=== PATIENT | female | born 1950 | race Caucasian/White ===

== ENCOUNTER → 2020-04-19 10:20 | Outpatient (CLI) | payer MEDICARE, SELFPAY ==
--- NOTE | ~2020-04-19 | XR_ITS ---
EXAMINATION: XR chest 2V 04/19/2020 10:35 INDICATION: Hypertensive heart disease with heart failure PROCEDURE: 2 view chest COMPARISON: No prior studies for comparison. FINDINGS: The lungs are clear. The cardiomediastinal silhouette is within normal limits. There are no pleural effusions. There is no pneumothorax suspected. Calcified granuloma left apex. There is s coliosis. IMPRESSION: 1: NO ACUTE CARDIOPULMONARY DISEASE. Reviewed, dictated and finalized at location A.
== END ==
PROVIDERS: PCP Internal Medicine; Visit Provider Internal Medicine
DX: I11.0 Hypertensive heart disease with heart failure (principal)
CPT/HCPCS: 71046

== ENCOUNTER 2020-05-04 13:12 | Outpatient (CLI) | payer MEDICARE, SELFPAY ==
--- NOTE | 2020-05-04 13:47 | ECHO_ITS ---
Patient Info Name: Barbara Gilman Age: 69 years : 1950 Gender: Female Ht: 60 in Wt: 116 lbs BSA: 1.50 m2 HR: 82 bpm BP: 144 / 82 mmHg Technical Quality: Good Exam Date: 05/04/2020 1:54 PM Exam Location: [facility] Patient Status: Outpatient Admit Date: 05/04/2020 Staff Ordering Physician: Rahul Martin MD Kettle Operator Head: Cintia Vicente RDCS Attending Provider: Rahul Martin MD Referring Physician: Veronica PRICE; Exam Type: CA echo doppler color flow Study Info Indications - HYPERTENSIVE HEART DISEASE CHF Complete two-dimensional, color flow and Doppler transthoracic echocardiogram is performed. Summary 1. Complete two-dimensional, color flow and Doppler transthoracic echocardiogram is performed. 2. Left ventricular chamber dimension is normal. 3. Ventricular septum is sigmoid shaped. No LVOT obstruction. 4. Left ventricular systolic function is normal, estimated at 60-65%. 5. The left ventricular diastolic function is grade I diastolic dysfunction. 6. E/e' 11 is mildly elevated. 7. Global longitudinal strain is normal at -19.8%. 8. Left atrial chamber dimension is moderately enlarged. 9. There is mild aortic valve sclerosis. 10. Mild systolic anterior motion of mitral valve. 11. There is trace mitral valve regurgitation. 12. There is trace tricuspid valve regurgitation. 13. No pulmonary hypertension, estimated pulmonary arterial systolic pressure is 28 mmHg. Left Ventricle E/e' 11 is mildly elevated. Global longitudinal strain is normal at -19.8%. Ventricular septum is sigmoid shaped. No LVOT obstruction. Left ventricular chamber dimension is normal. Left ventricular systolic function is normal, estimated at 60-65%. The left ventricular diastolic function is grade I diastolic dysfunction. Right Ventricle Right ventricular chamber dimension is normal. Right ventricular systolic function is normal. Left Atria Left atrial chamber dimension is moderately enlarged. Right Atria Right atrial chamber dimension is normal. Aortic Valve The aortic valve is trileaflet. There is mild aortic valve sclerosis. There is no aortic valve stenosis. There is no aortic valve regurgitation. Pulmonic Valve There is no pulmonic regurgitation. Mitral Valve Mild systolic anterior motion of mitral valve. There is no mitral valve stenosis. There is trace mitral valve regurgitation. Tricuspid Valve There is trace tricuspid valve regurgitation. No pulmonary hypertension, estimated pulmonary arterial systolic pressure is 28 mmHg. Pericardium/Pleural There is no pericardial effusion. Inferior Vena Cava Normal inferior vena cava with >50% collapse upon inspiration consistent with normal right atrial pressure, 5 mmHg. Aorta The aortic root size at the sinus of Valsalva is normal. Left Ventricular Outflow Tract Name Value Normal LVOT 2D LVOT Diameter 2.0 cm LVOT Doppler LVOT Peak Gradient 5 mmHg LVOT Mean Gradient 3 mmHg LVOT VTI 22 cm LVOT VTI/AV VTI Ratio
== END 2020-05-04 13:13 | disposition home or self-care (01) ==
PROVIDERS: PCP Internal Medicine; Visit Provider Internal Medicine
DX: R60.0 Localized edema (principal); I11.0 Hypertensive heart disease with heart failure; I35.8 Other nonrheumatic aortic valve disorders
CPT/HCPCS: 93306

== ENCOUNTER 2020-06-08 09:55 | Outpatient (CLI) | payer MEDICARE, SELFPAY ==
[2020-06-08 11:00] LABS: Anion Gap 6 mmol/L (8-16); Blood Urea Nitrogen 15 mg/dL (7-17); Calcium 8.8 mg/dL (8.4-10.2); Carbon Dioxide 34 mmol/L (22-30); Chloride 95 mmol/L (98-107); Estimated Glomerular Filt Rate > 60; Glucose 131 mg/dL (65-105); Potassium 3.8 mmol/L (3.4-5.0); Sodium 135 mmol/L (137-145)
[2020-06-08 11:07] LABS: NT Pro B Type Natriuretic Pept 766 PG/ML (5-100)
== END 2020-06-08 09:56 | disposition home or self-care (01) ==
LOC: ANHLAB 09:57
PROVIDERS: PCP Internal Medicine; Visit Provider Internal Medicine
DX: I11.0 Hypertensive heart disease with heart failure (principal)
CPT/HCPCS: 36415; 80048; 83880

== ENCOUNTER 2021-09-27 00:20 | Day surgery (SDC) | payer MEDICARE, SELFPAY ==
[2021-09-22 13:41] VITALS: BMI 22.8
[2021-09-27 08:33] VITALS: BP 139/58; PULSE 94; RESP 16; TEMP 36.3; O2SAT 100; BMI 21.2
[2021-09-27] MEDS: LACTATED RINGERS 1,000 ML 150 ML IV CONT (08:53)
[2021-09-27 08:54] LABS: Glucose Point of Care 115 mg/dl (65-105)
--- NOTE | 2021-09-27 09:20 | WPDANESEPPF ---
Anes - Initial Pre Proc Eval Procedure: Operation Date: 09/27/21 10:00 Proposed Procedures p Colonoscopy - Archie Haney MD Date/Time: 09/27/21 09:20 Surgeon: Archie Haney MD Pre Op Diagnosis: ROHITH Patient Data Age: 71 Gender: F Height: 1.52 m Weight: 49.4 kg Last Vital Signs Temp 97.3 F L 09/27/21 08:33 Pulse 94 09/27/21 08:33 Resp 16 09/27/21 08:33 BP 139/58 L 09/27/21 08:33 Pulse Ox 100 09/27/21 08:33 Allergies Allergy/AdvReac Type Severity Reaction Status Date / Time No Known Allergies Allergy Verified 09/27/21 08:41 Home Medications Medication Instructions Recorded Confirmed Type nebivolol 5 mg tablet 5 mg PO DAILY #90 tablet 08/22/21 09/27/21 Rx ferrous sulfate 325 mg (65 mg 325 mg PO DAILY 09/04/21 09/27/21 History iron) tablet pen needle, diabetic 32 gauge x #100 each 09/04/21 09/27/21 Rx 3/16 levothyroxine 50 mcg tablet 50 mcg PO DAILY #90 tablet 09/19/21 09/27/21 Rx cholecalciferol (vitamin D3) 1,250 mcg PO WEEKLY 09/22/21 09/27/21 History citalopram 10 mg PO DAILY 09/22/21 09/27/21 History empagliflozin-metformin [Synjardy 1 tablet PO DAILY 09/22/21 09/27/21 History XR] insulin degludec [Tresiba 10 unit SUBCUT DAILY 09/22/21 09/27/21 History FlexTouch U-100] perindopril erbumine 4 mg PO DAILY 09/22/21 09/27/21 History potassium chloride 10 meq PO DAILY 09/22/21 09/27/21 History rosuvastatin 10 mg PO DAILY 09/22/21 09/27/21 History glimepiride 1 mg tablet 1 mg PO QAM 09/27/21 09/27/21 History Laboratory Tests 09/27/21 08:51 POC Capillary Glucose 115 mg/dl H mg/dl (65-105) Patient hx anesthesia problems: none Family hx anesthesia problems: none Results Review: All pre-operative results and documents have been reviewed as part of the pre-operative evaluation. [facility] Past Medical History Medical History (Updated 09/21/21 @ 10:04 by Archie Haney MD) Choledocholithiasis Elevated alkaline phosphatase level Eye exam normal Hypertensive heart disease with CHF Surgical History Surgical History H/O eye surgery Family History Family History Father Family history of Alzheimer's disease Sibling Family history of diabetes mellitus in first degree relative Grandparent Diabetes mellitus Social History Social History Smoking status: Never smoker Second hand tobacco smoke exposure: No Alcohol intake: never Substance use: never Substance use type: does not use Living arrangements: with family Gender identity (if verbalized by the patient): Female Spiritual care concerns: No Agree to blood products: Yes Anes - Eval Final PreProcedure Day of Procedure 09/27/21 09:20 Patient weight: normal Heart: regular rate and rhythm Lungs: clear to auscultation Airway: Mallampati scale class II Neurological: alert and oriented Last oral intake: >/= 8 hours ASA classification: III Emergent: no Anesthetic plan: proceed Anesthesia type and monitoring: general GIVS and standard monitoring Results Review: All pre-operative results and documents have been reviewed as part of the pre-operative evaluation. Informed Consent: The patient's anesthetic plan and its attendant risks and benefits were discussed with the patient/family/POA. Questions were solicited and answers provided to the satisfaction of the patient/family/POA.
--- NOTE | 2021-09-27 09:56 | WPDHPUPDATE1 ---
History and Physical Update Update Date/Time: 09/27/21 09:56 History and Physical has been reviewed, including an updated exam of the patient. There are NO changes in the patient's condition. Risks, benefits, and alternatives have been discussed and questions answered. Patient agrees to proceed with procedure.
[2021-09-27 10:30] VITALS: BP 107/58; PULSE 78; RESP 19; O2SAT 98
[2021-09-27 10:40] VITALS: BP 114/69; PULSE 81; RESP 16; O2SAT 100
[2021-09-27 10:49] LABS: Glucose Point of Care 107 mg/dl (65-105)
[2021-09-27 10:50] VITALS: BP 111/68; PULSE 79; RESP 16; O2SAT 100
== END 2021-09-27 11:01 | disposition home or self-care (01) ==
PROVIDERS: PCP Family Medicine; Visit Provider Internal Medicine Gastroenterology
PROC: 0DJD8ZZ Inspection of Lower Intestinal Tract, Via Natural or Artificial Opening Endoscopic (ICD-10-PCS; CPT 45378; principal; 2021-09-27 10:00)
DX: K57.30 Diverticulosis of large intestine without perforation or abscess without bleeding (principal); D12.3 Benign neoplasm of transverse colon; D12.2 Benign neoplasm of ascending colon; D12.0 Benign neoplasm of cecum; D12.7 Benign neoplasm of rectosigmoid junction; K63.5 Polyp of colon; K64.8 Other hemorrhoids; K64.4 Residual hemorrhoidal skin tags; I11.0 Hypertensive heart disease with heart failure; I50.9 Heart failure, unspecified; E11.319 Type 2 diabetes mellitus with unspecified diabetic retinopathy without macular edema; K80.50 Calculus of bile duct without cholangitis or cholecystitis without obstruction; R74.8 Abnormal levels of other serum enzymes; E11.65 Type 2 diabetes mellitus with hyperglycemia; Z79.84 Long term (current) use of oral hypoglycemic drugs; Z79.4 Long term (current) use of insulin
CPT/HCPCS: 45380; 45385; 82948; 88305; J2704; J7120

== ENCOUNTER 2021-10-06 01:05 | Day surgery (SDC) | payer MEDICARE, SELFPAY ==
[2021-10-02 13:28] VITALS: BMI 22.8
[2021-10-02 13:45] VITALS: BMI 22.8
--- NOTE | 2021-10-02 13:50 | PC.NURSE ---
Pts. labs reviewed by Dr. Medina and Dr. Gutiérrez. Will order EKG to be done in pre-op on am of procedure. No other orders received.
[2021-10-06] VITALS (8 sets, daily range): BP systolic 116–154; BP diastolic 65–80; PULSE 66–88; RESP 16–24; TEMP 36.6–36.9; O2SAT 99–100; BMI 24.5
--- NOTE | ~2021-10-06 | XR_ITS ---
EXAMINATION: XR ERCP DATE: 10/06/2021 15:19 INDICATION: Biliary stones TECHNIQUE: Two intraoperative fluoroscopic images obtained during endoscopic retrograde cholangiopanc reatography (ERCP) are submitted for review. Total fluoroscopic time was 194.8 seconds. COMPARISON: None. FINDINGS: Fluoroscopic images demonstrate cannulation of the common bile duct stent placement. IMPRESSION: 1. Biliary stent placement. Please refer to the ERCP procedure note for additional details. Reviewed, dictated and finalized at location B. L TIER IMPRESSION: 1. Biliary stent placement. Please refer to the ERCP procedure note for additio nal details.
--- NOTE | 2021-10-06 12:40 | ECG_ITS ---
Measurements Intervals [place] Rate: 75 P: 33 KS: 144 QRS: -20 QRSD: 98 T: 20 QT: 412 QTc: 460 Interpretive Statements SINUS RHYTHM WITHIN NORMAL LIMITS NO PREVIOUS ECG AVAILABLE FOR COMPARISON Electronically Signed On 10-09-2021 14:09:07 CDT by Abdon La M.D.
[2021-10-06 13:04] LABS: Glucose Point of Care 148 mg/dl (65-105)
[2021-10-06] MEDS: LACTATED RINGERS 1,000 ML 150 ML IV CONT (13:11)
--- NOTE | 2021-10-06 13:21 | PM.HPGS ---
History of Present Illness History of Present Illness Consent: Risks, benefits, and alternatives have been discussed and questions answered. Patient agrees to proceed with procedure. Chief complaint: CBD Gallstone Narrative: Barbara Gilman is a 71 year old female here for ercp, she was found to have odilon and also large stone in bile duct with elevated Alk phos. Review of Systems Constitutional: Constitutional: Denies headache(s) and Denies weakness Eyes: Eyes: Denies blurry vision ENT: Reports Normal hearing present, Denies headache(s) and Denies neck pain Cardiovascular: Cardiovascular: Denies chest pain and Denies dyspnea Respiratory: Respiratory: Denies dyspnea Gastrointestinal: Gastrointestinal: Reports no additional gastrointestinal complaints Genitourinary: Genitourinary: Denies dysuria Musculoskeletal: Musculoskeletal: Denies neck pain Integumentary/Breasts: Skin/Breast: Denies dry skin Neurologic: Reports Normal hearing present, Denies headache(s) and Denies weakness Psychiatric: Psychiatric: Denies anxiety Endocrine: Endocrine: Denies change in body appearance Hematologic/Lymphatic: Hematologic/Lymphatic: Denies easy bleeding Allergic/Immunologic: Allergic/Immunologic: Denies urticaria PMFSH Past Medical History Medical History Choledocholithiasis Elevated alkaline phosphatase level Eye exam normal Hypertensive heart disease with CHF Surgical History Surgical History H/O eye surgery Family History Family History Father Family history of Alzheimer's disease Sibling Family history of diabetes mellitus in first degree relative Grandparent Diabetes mellitus Social History Social History Smoking status: Never smoker Second hand tobacco smoke exposure: No Alcohol intake: never Substance use: never Substance use type: does not use Living arrangements: with family Gender identity (if verbalized by the patient): Female Spiritual care concerns: No Agree to blood products: Yes Meds Home Medications and Allergies Home Medications Medication Instructions Recorded Confirmed Type nebivolol 5 mg tablet 5 mg PO DAILY #90 tablet 08/22/21 09/29/21 Rx ferrous sulfate 325 mg (65 mg 325 mg PO DAILY 09/04/21 09/29/21 History iron) tablet pen needle, diabetic 32 gauge x #100 each 09/04/21 09/29/21 Rx /16 levothyroxine 50 mcg tablet 50 mcg PO DAILY #90 tablet 09/19/21 09/29/21 Rx cholecalciferol (vitamin D3) 1,250 mcg PO WEEKLY 09/22/21 09/29/21 History citalopram 10 mg PO DAILY 09/22/21 09/29/21 History empagliflozin-metformin [Synjardy 1 tablet PO DAILY 09/22/21 09/29/21 History XR] insulin degludec [Tresiba 10 unit SUBCUT DAILY 09/22/21 09/29/21 History FlexTouch U-100] perindopril erbumine 4 mg PO DAILY 09/22/21 09/29/21 History potassium chloride 10 meq PO DAILY 09/22/21 09/29/21 History rosuvastatin 10 mg PO DAILY 09/22/21 09/29/21 History glimepiride 1 mg tablet 1 mg PO QAM 09/27/21 09/29/21 History Allergies Allergy/AdvReac Type Severity Reaction Status Date / Time No Known Allergies Allergy Verified 10/06/21 12:52 Vital Signs Vital Signs - 24 hr 10/06/21 12:55 Temperature 98.5 F Pulse Rate 88 Respiratory Rate 18 Blood Pressure 154/65 H Pulse Oximetry 100 Exam Const: General: comfortable and no acute distress HENMT: General nose exam: Normal nares present Eyes: General: appearance normal, both eyes and all related structures Neck: Neck: no JVD Resp: Auscultation: clear to auscultation bilaterally Cardio: Rate: regular rate Rhythm: regular rhythm GI: Inspection: non-distended GI Palp: Yes Soft to palpation Skin: General skin exam: normal color Neuro: General: gait normal Speech: norm
--- NOTE | 2021-10-06 13:29 | WPDANESEPPF ---
Anes - Initial Pre Proc Eval Procedure: Operation Date: 10/06/21 14:15 Proposed Procedures p Endoscopic Retro Cholangiopancreatogram With Spyglass - Archie Haney MD Date/Time: 10/06/21 13:29 Surgeon: Archie Haney MD Pre Op Diagnosis: CBD Gallstone Patient Data Age: 71 Gender: F Height: 1.52 m Weight: 57.1 kg Last Vital Signs Temp 98.5 F 10/06/21 12:55 Pulse 88 10/06/21 12:55 Resp 18 10/06/21 12:55 BP 154/65 H 10/06/21 12:55 Pulse Ox 100 10/06/21 12:55 Allergies Allergy/AdvReac Type Severity Reaction Status Date / Time No Known Allergies Allergy Verified 10/06/21 12:52 Home Medications Medication Instructions Recorded Confirmed Type nebivolol 5 mg tablet 5 mg PO DAILY #90 tablet 08/22/21 09/29/21 Rx ferrous sulfate 325 mg (65 mg 325 mg PO DAILY 09/04/21 09/29/21 History iron) tablet pen needle, diabetic 32 gauge x #100 each 09/04/21 09/29/21 Rx /16 levothyroxine 50 mcg tablet 50 mcg PO DAILY #90 tablet 09/19/21 09/29/21 Rx cholecalciferol (vitamin D3) 1,250 mcg PO WEEKLY 09/22/21 09/29/21 History citalopram 10 mg PO DAILY 09/22/21 09/29/21 History empagliflozin-metformin [Synjardy 1 tablet PO DAILY 09/22/21 09/29/21 History XR] insulin degludec [Tresiba 10 unit SUBCUT DAILY 09/22/21 09/29/21 History FlexTouch U-100] perindopril erbumine 4 mg PO DAILY 09/22/21 09/29/21 History potassium chloride 10 meq PO DAILY 09/22/21 09/29/21 History rosuvastatin 10 mg PO DAILY 09/22/21 09/29/21 History glimepiride 1 mg tablet 1 mg PO QAM 09/27/21 09/29/21 History Laboratory Tests 10/06/21 13:01 POC Capillary Glucose 148 mg/dl H mg/dl (65-105) Patient hx anesthesia problems: none Family hx anesthesia problems: none Results Review: All pre-operative results and documents have been reviewed as part of the pre-operative evaluation. [facility] Past Medical History Medical History Choledocholithiasis Elevated alkaline phosphatase level Eye exam normal Hypertensive heart disease with CHF Surgical History Surgical History H/O eye surgery Family History Family History Father Family history of Alzheimer's disease Sibling Family history of diabetes mellitus in first degree relative Grandparent Diabetes mellitus Social History Social History Smoking status: Never smoker Second hand tobacco smoke exposure: No Alcohol intake: never Substance use: never Substance use type: does not use Living arrangements: with family Gender identity (if verbalized by the patient): Female Spiritual care concerns: No Agree to blood products: Yes Anes - Eval Final PreProcedure Day of Procedure 10/06/21 13:29 Patient weight: normal Heart: regular rate and rhythm Lungs: clear to auscultation Airway: Mallampati scale class II Neurological: alert and oriented Last oral intake: >/= 8 hours ASA classification: III Emergent: no Anesthetic plan: proceed Anesthesia type and monitoring: general ETT and standard monitoring Results Review: All pre-operative results and documents have been reviewed as part of the pre-operative evaluation. Informed Consent: The patient's anesthetic plan and its attendant risks and benefits were discussed with the patient/family/POA. Questions were solicited and answers provided to the satisfaction of the patient/family/POA.
[2021-10-06] MEDS: levoFLOXacin 500 MG/D5W 100 ML 500 MG/100 ML BAG 100 MG IVPB (14:39)
[2021-10-06 15:33] LABS: Glucose Point of Care 145 mg/dl (65-105)
== END 2021-10-06 16:29 | disposition home or self-care (01) ==
PROVIDERS: PCP Family Medicine; Visit Provider Internal Medicine Gastroenterology
PROC: (CPT 43260; principal; 2021-10-06 14:15)
DX: K80.50 Calculus of bile duct without cholangitis or cholecystitis without obstruction (principal); I11.0 Hypertensive heart disease with heart failure; I50.9 Heart failure, unspecified; D50.9 Iron deficiency anemia, unspecified
CPT/HCPCS: 43264; 43274; 43273; 43261; 74329; 82948; 88305; 93005; C1876; J0330; J1956; J2370; J2704; J7120

== ENCOUNTER 2021-10-30 09:13 | Outpatient (CLI) | payer MEDICARE, SELFPAY ==
[2021-10-30 10:00] LABS: Basophils Absolute Auto 0.1 K/mm3 (0.0-0.1); Basophils Percent Auto 1.3 % (0.2-1.2); Eosinophils Absolute Auto 0.1 K/mm3 (0-0.3); Eosinophils Percent Auto 1.6 % (0-4.4); Hematocrit 23.4 % (37.0-47.0); Immature Granulocyte Absolute 0.03 K/mm3 (0.00-0.031); Immature Granulocyte Percent A 0.5 % (0-0.5); Lymphocytes Absolute Auto 1.53 K/mm3 (0.9-3.2); Lymphocytes Percent Auto 24.2 % (18.3-44.2); Mean Corpuscular HGB Conc 28.2 g/dl (32-36); Mean Corpuscular Hemoglobin 23.7 pg (26-34); Mean Corpuscular Volume 84.2 fl (80-100); Mean Platelet Volume 10.3 fl (7.4-10.4); Monocytes Absolute Auto 0.5 K/mm3 (0.1-0.6); Monocytes Percent Auto 8.6 % (2.6-8.5); Neutrophils Percent Auto 63.8 % (45.5-73.1); Platelet Count Result 248 k/mm3 (150-375); Red Blood Count 2.78 M/mm3 (4.2-5.4); White Blood Count 6.3 K/mm3 (4.5-10.0)
[2021-10-30 10:01] LABS: Amylase 116 U/L (30-110); Lipase 216 U/L (23-300)
[2021-10-30 10:30] LABS: Hemoglobin 6.6 g/dL (12.0-15.0)
== END 2021-10-30 09:14 | disposition home or self-care (01) ==
LOC: ANHSURGERY 09:16
PROVIDERS: PCP Family Medicine; Visit Provider Surgery
DX: Z01.818 Encounter for other preprocedural examination (principal); K80.20 Calculus of gallbladder without cholecystitis without obstruction; K80.50 Calculus of bile duct without cholangitis or cholecystitis without obstruction
CPT/HCPCS: 36415; 82150; 83690; 85025; 86850; 86900; 86901

== ENCOUNTER 2021-11-08 07:19 | Outpatient (RCR) | payer MEDICARE, SELFPAY ==
[2021-11-08 07:49] LABS: Hematocrit 23.8 % (37.0-47.0)
[2021-11-08 07:55] LABS: Hemoglobin 6.7 g/dL (12.0-15.0)
[2021-11-08] MEDS: SODIUM CHLORIDE 0.9% IV 250 ML 30 ML IV CONT (09:28)
[2021-11-08] MEDS: diphenhydrAMINE HCl CAP 25 MG CAPSULE PO (09:29)
[2021-11-08] MEDS: ACETAMINOPHEN 325 MG TABLET 650 MG PO (09:29)
[2021-11-08 09:45] VITALS: BP 110/52; PULSE 71; RESP 16; TEMP 36.9; O2SAT 99
[2021-11-08 10:00] VITALS: BP 108/58; PULSE 66; RESP 16; TEMP 36.5; O2SAT 97
[2021-11-08 11:00] VITALS: BP 117/61; PULSE 65; RESP 16; TEMP 36.8; O2SAT 98
[2021-11-08 12:00] VITALS: BP 126/63; PULSE 68; RESP 16; TEMP 36.6; O2SAT 97
[2021-11-08 12:55] VITALS: BP 129/68; PULSE 66; RESP 16; TEMP 36.6; O2SAT 98
== END 2022-02-04 23:59 | disposition home or self-care (01) ==
LOC: ANHCPCTRAN 07:19
PROVIDERS: PCP Family Medicine; Visit Provider Family Medicine
DX: D50.9 Iron deficiency anemia, unspecified (principal)
CPT/HCPCS: 36415; 36430; 85014; 85018; 86850; 86900; 86901; 86920; P9038; A9270; J7040; J7050

== ENCOUNTER 2021-11-17 10:59 | Outpatient (CLI) | payer MEDICARE, SELFPAY ==
[2021-11-17 11:17] LABS: Basophils Absolute Auto 0.1 K/mm3 (0.0-0.1); Basophils Percent Auto 1.3 % (0.2-1.2); Eosinophils Absolute Auto 0.2 K/mm3 (0-0.3); Eosinophils Percent Auto 3.5 % (0-4.4); Hematocrit 33.1 % (37.0-47.0); Hemoglobin 9.5 g/dL (12.0-15.0); Immature Granulocyte Absolute 0.06 K/mm3 (0.00-0.031); Immature Platelet Fraction Pct 2.7 % (0.9-11.2); Lymphocytes Percent Auto 28.1 % (18.3-44.2); Mean Corpuscular HGB Conc 28.7 g/dl (32-36); Mean Corpuscular Hemoglobin 26.5 pg (26-34); Mean Corpuscular Volume 92.2 fl (80-100); Mean Platelet Volume 9.7 fl (7.4-10.4); Monocytes Absolute Auto 0.5 K/mm3 (0.1-0.6); Monocytes Percent Auto 7.6 % (2.6-8.5); Neutrophils Absolute Auto 3.5 K/mm3 (1.3-6.7); Neutrophils Percent Auto 58.5 % (45.5-73.1); Platelet Count Result 224 k/mm3 (150-375); Red Blood Count 3.59 M/mm3 (4.2-5.4); Red Cell Distribution Width 22.3 % (11.5-14.5); White Blood Count 6.1 K/mm3 (4.5-10.0)
[2021-11-17 11:18] LABS: Reticulocytes Absolute 0.18 B/L (32.2-175.7)
[2021-11-17 11:20] LABS: Immature Reticulocyte Fraction 15.6 % (3.0-15.9); Reticulocyte Hemoglobin Conten 34.7 pg (28.2-35.7); Reticulocyte Percent 5.03 % (0.7-4.3)
[2021-11-17 11:21] LABS: Anisocytosis 1+ (NORMAL); Hypochromasia 1+ (NORMAL); Platelet Estimate Adequate (Adequate)
[2021-11-17 14:20] LABS: Iron 99 ug/dL (37-170)
[2021-11-17 14:30] LABS: Alanine Aminotransferase 24 U/L (4-35); Albumin Level 4.2 g/dL (3.5-5.1); Alkaline Phosphatase 193 U/L (38-126); Anion Gap 6 mmol/L (8-16); Aspartate Amino Transferase 37 U/L (14-36); Bilirubin,Total 0.2 mg/dL (0.2-1.3); Blood Urea Nitrogen 24 mg/dL (7-17); Calcium 9.6 mg/dL (8.4-10.2); Carbon Dioxide 29 mmol/L (22-30); Chloride 102 mmol/L (98-107); Estimated Glomerular Filt Rate > 60; Glucose 130 mg/dL (65-110); Potassium 4.8 mmol/L (3.4-5.0); Sodium 137 mmol/L (137-145)
[2021-11-17 14:37] LABS: Percent Iron Saturation 24 % (20-50)
[2021-11-21 15:59] LABS: Albumin 3.6 g/dL (3.8-4.8); Alpha 1 Globulin 0.3 g/dL (0.2-0.3); Beta 1 Globulin 0.5 g/dL (0.4-0.6); Gamma Globulin 2.4 g/dL (0.8-1.7); Protein, Total 8.3 g/dL (6.1-8.1)
== END 2021-11-17 11:00 | disposition home or self-care (01) ==
LOC: ANHLAB 11:01
PROVIDERS: PCP Family Medicine; Visit Provider Internal Medicine Hematology & Oncology
DX: D64.9 Anemia, unspecified (principal)
CPT/HCPCS: 36415; 80053; 82607; 82728; 83540; 83550; 84155; 84165; 85025; 85046; 85055

== ENCOUNTER 2021-11-29 01:41 | Day surgery (SDC) | payer MEDICARE, SELFPAY ==
[2021-11-28 16:04] VITALS: BMI 24.4
[2021-11-29] VITALS (11 sets, daily range): BP systolic 99–136; BP diastolic 46–61; PULSE 65–69; RESP 12–16; TEMP 36.5–36.8; O2SAT 98–100; BMI 22.5
--- NOTE | ~2021-11-29 | BM_ITS ---
EXAMINATION: CCL bone marrow asp w bx diag ORDER COMPLETED DATE: 11/29/2021 11:34 INDICATION: Anemia TECHNIQUE: A time-out was performed to verify the patient's name, date of , and procedure to b e performed. The procedure including the risks and benefits was discussed with the patient. Risks dis cussed included bleeding, infection, nerve injury and allergic reaction. The patient understood the r isks and agreed to proceed. The skin overlying the right posterior iliac spine was prepped and draped in usual sterile fashion. Anesthetic was administered with 1% lidocaine subcutaneously. Moderate co nscious sedation was achieved with 50 mcg fentanyl IV. An 11 gauge needle was inserted into the ilium with fluoroscopic guidance. Bone marrow was aspirated. An 8 gauge needle was then inserted into the ilium with fluoroscopic guidance. A core bone marrow biopsy was obtained. The needle was removed and the entry site was cleaned and dressed. There were no immediate complications. A total of 179 fluoro scopic images were recorded. Fluoroscopy exposure time was 0.4 minutes. FINDINGS: Real-time fluoroscopy demonstrates the biopsy needle tip overlying the right posterior michelle c spine. IMPRESSION: 1. Successful fluoroscopic guided bone marrow aspiration. 2. Successful fluoroscopic guided bone marrow biopsy. Reviewed, dictated and finalized at location A.
[2021-11-29 08:17] LABS: Basophils Absolute Auto 0.1 K/mm3 (0.0-0.1); Basophils Percent Auto 1.2 % (0.2-1.2); Eosinophils Absolute Auto 0.2 K/mm3 (0-0.3); Eosinophils Percent Auto 2.8 % (0-4.4); Hematocrit 32.8 % (37.0-47.0); Hemoglobin 9.7 g/dL (12.0-15.0); Immature Granulocyte Absolute 0.05 K/mm3 (0.00-0.031); Immature Granulocyte Percent A 0.9 % (0-0.5); Lymphocytes Percent Auto 31.4 % (18.3-44.2); Mean Corpuscular HGB Conc 29.6 g/dl (32-36); Mean Corpuscular Hemoglobin 27.4 pg (26-34); Mean Corpuscular Volume 92.7 fl (80-100); Mean Platelet Volume 10.4 fl (7.4-10.4); Monocytes Absolute Auto 0.5 K/mm3 (0.1-0.6); Monocytes Percent Auto 8.6 % (2.6-8.5); Neutrophils Absolute Auto 3.2 K/mm3 (1.3-6.7); Neutrophils Percent Auto 55.1 % (45.5-73.1); Platelet Count Result 223 k/mm3 (150-375); Red Blood Count 3.54 M/mm3 (4.2-5.4); Red Cell Distribution Width 21.2 % (11.5-14.5); White Blood Count 5.7 K/mm3 (4.5-10.0)
[2021-11-29 08:30] LABS: INR 1.1; Prothrombin Time 13.9 Seconds (11.1-14.7)
--- NOTE | 2021-11-29 08:55 | SUR.PREOP ---
DR. MONROY HERE TO BEDSIDE TO SEE PT.
--- NOTE | 2021-11-29 09:05 | WPDMODSED ---
Moderate Sedation Note-Pt Data Patient Data Allergies Allergy/AdvReac Type Severity Reaction Status Date / Time No Known Allergies Allergy Verified 11/29/21 08:33 Home Medications Medication Instructions Recorded Confirmed Type pen needle, diabetic 32 gauge x #100 each 09/04/21 11/29/21 Rx 10/11 cholecalciferol (vitamin D3) 1,250 mcg PO WEEKLY 09/22/21 11/29/21 History citalopram 10 mg PO QAM 09/22/21 11/29/21 History empagliflozin-metformin [Synjardy 1 tablet PO QAM 09/22/21 11/29/21 History XR] insulin degludec [Tresiba 10 unit SUBCUT HS 09/22/21 11/29/21 History FlexTouch U-100] perindopril erbumine 4 mg PO QAM 09/22/21 10/23/21 History potassium chloride 10 meq PO QAM 09/22/21 11/29/21 History rosuvastatin 10 mg PO QAM 09/22/21 11/29/21 History glimepiride 1 mg tablet 1 mg PO QAM 09/27/21 11/29/21 History levofloxacin 500 mg PO QAM 10/23/21 11/29/21 History levothyroxine 50 mcg PO QAM 10/23/21 11/29/21 History nebivolol 5 mg PO QAM 10/23/21 11/29/21 History omeprazole 20 mg PO QAM 10/23/21 11/29/21 History ferrous sulfate 325 mg (65 mg 325 mg PO BID #180 tablet 11/02/21 11/29/21 Rx iron) tablet ascorbate calcium (vitamin C) 500 500 mg PO DAILY 11/17/21 11/29/21 History mg tablet furosemide 40 mg PO DAILY 11/29/21 11/29/21 History Sedation/Anesthesia: No previous sedation/anesthesia problems (including family history). [facility] Past Medical History Medical History Choledocholithiasis Elevated alkaline phosphatase level Eye exam normal Hypertensive heart disease with CHF Surgical History Surgical History H/O colonoscopy H/O eye surgery History of ERCP Family History Family History Father Family history of Alzheimer's disease Sibling Family history of diabetes mellitus in first degree relative Grandparent Diabetes mellitus Social History Social History Smoking status: Never smoker Second hand tobacco smoke exposure: No Alcohol intake: never Substance use: never Substance use type: does not use Living arrangements: alone Gender identity (if verbalized by the patient): Female Spiritual care concerns: No Agree to blood products: Yes Mod Sed Physical Exam Physical Exam Pre Procedural Exam: Normal: Appearance, Eyes, Throat, Airway, Lungs, Heart Rate, Heart Rhythm, Abdomen and Extremities Hours since solid foods: 13 Hours since liquid intake: 13 Mallampati Classification: class II Internal Medicine - PN: Obj Da Labs CBC & Chem 7: 11/29/21 07:55 Labs: Laboratory Results - last 24 hr 11/29/21 11/29/21 07:55 07:55 WBC 5.7 RBC 3.54 L Hgb 9.7 L Hct 32.8 L MCV 92.7 MCH 27.4 MCHC 29.6 L RDW 21.2 H Plt Count 223 MPV 10.4 Immature Gran % (Auto) 0.9 H Neut % (Auto) 55.1 Lymph % (Auto) 31.4 [place] % (Auto) 8.6 H Eos % (Auto) 2.8 Baso % (Auto) 1.2 Lymph # (Auto) 1.80 [place] # (Auto) 0.5 Eos # (Auto) 0.2 Baso # (Auto) 0.1 Abs Immat Gran (auto) 0.05 H Absolute Neuts (auto) 3.2 Absolute Nucleated RBC 0.0 Nucleated RBC % 0.0 PT 13.9 INR 1.1 ASA Classification/Sedation ASA Classification/Sedation ASA Class: II Emergent: No Risks: Risks, benefits and alternatives explained and patient/family accepted plan for sedation. Patient re-evaluated immediately prior to sedation.
[2021-11-29 12:29] LABS: Glucose Point of Care 108 mg/dl (65-105)
--- NOTE | 2021-11-29 12:37 | SUR.PHASEII ---
UPDATE CALLED TO DR. MONROY. WAS HERE TO SEE PT AT 1115. SINCE BEING UP TO CHAIR AT 1145, VSS, BP HAS IMPROVED. PT. WITHOUT C/O. NO EDEMA OR HEMATOMA TO R. POSTERIOR HIP BX SITE. OK TO DISCHARGE PT. HOME PER DR. MONROY.
== END 2021-11-29 13:20 | disposition home or self-care (01) ==
PROVIDERS: PCP Family Medicine; Referring Provider Internal Medicine Hematology & Oncology; Visit Provider Radiology Diagnostic Radiology
DX: D64.9 Anemia, unspecified (principal); I11.0 Hypertensive heart disease with heart failure; I50.9 Heart failure, unspecified; Z79.84 Long term (current) use of oral hypoglycemic drugs
CPT/HCPCS: 36415; 38222; 82948; 85025; 85610; 88184; 88185; 88305; 88311; 88313; J1642; J3010

== ENCOUNTER 2022-06-06 12:51 | Outpatient (CLI) | payer MEDICARE, SELFPAY ==
[2022-06-06 13:06] LABS: Basophils Absolute Auto 0.1 K/mm3 (0.0-0.1); Basophils Percent Auto 0.9 % (0.2-1.2); Eosinophils Absolute Auto 0.4 K/mm3 (0-0.3); Eosinophils Percent Auto 4.5 % (0-4.4); Hematocrit 37.2 % (37.0-47.0); Hemoglobin 12.5 g/dL (12.0-15.0); Immature Granulocyte Absolute 0.04 K/mm3 (0.00-0.031); Immature Granulocyte Percent A 0.5 % (0-0.5); Lymphocytes Absolute Auto 2.27 K/mm3 (0.9-3.2); Lymphocytes Percent Auto 29.3 % (18.3-44.2); Mean Corpuscular HGB Conc 33.6 g/dl (32-36); Mean Corpuscular Hemoglobin 31.5 pg (26-34); Mean Corpuscular Volume 93.7 fl (80-100); Mean Platelet Volume 9.5 fl (7.4-10.4); Monocytes Absolute Auto 0.5 K/mm3 (0.1-0.6); Monocytes Percent Auto 6.7 % (2.6-8.5); Neutrophils Absolute Auto 4.5 K/mm3 (1.3-6.7); Neutrophils Percent Auto 58.1 % (45.5-73.1); Platelet Count Result 199 k/mm3 (150-375); Red Blood Count 3.97 M/mm3 (4.2-5.4); Red Cell Distribution Width 11.7 % (11.5-14.5); White Blood Count 7.7 K/mm3 (4.5-10.0)
[2022-06-06 16:55] LABS: Anion Gap 11 mmol/L (8-16); Blood Urea Nitrogen 17 mg/dL (7-17); Calcium 9.2 mg/dL (8.4-10.2); Carbon Dioxide 24 mmol/L (22-30); Chloride 103 mmol/L (98-107); Estimated Glomerular Filt Rate > 60; Glucose 235 mg/dL (65-110); Potassium 4.3 mmol/L (3.4-5.0); Sodium 138 mmol/L (137-145)
[2022-06-06 17:19] LABS: Iron 78 ug/dL (37-170)
[2022-06-06 17:29] LABS: Percent Iron Saturation 24 % (20-50)
[2022-06-06 18:17] LABS: Folic Acid 18.6 ng/mL (2.76->20)
== END 2022-06-06 12:52 | disposition home or self-care (01) ==
LOC: ANHLAB 12:53
PROVIDERS: PCP Family Medicine; Visit Provider Internal Medicine Hematology & Oncology
DX: D64.9 Anemia, unspecified (principal)
CPT/HCPCS: 36415; 80048; 82607; 82728; 82746; 83540; 83550; 85025